=== PATIENT | female | born 1980 | race Caucasian/White ===

== ENCOUNTER 2016-05-31 09:27 | Emergency (ER) | payer OTHER ==
[~2016-05-31 09:27] MED LIST: ALBUTEROL17 GM INH; AURALGAN EAR DR14 ML OT; BACTRIM DS TABL1 TA1 PO; BENZONATATE PO; CIPRO PO; CIPRODEX OTIC7.5 ML OT; CLEOCIN PO; ERY-TAB500 MG PO; FLAGYL PO; FLOXIN20 EA OP; IBUPROFEN800 MG PO; LORTAB 7.5-5001 TAB; LORTAB 7.5-5001 TAB PO; MOTRIN600 MG PO; NO MEDICATIONS; PERCOCET5/325 PO; PHENERGAN PO; PHENERGAN VC W120 M1 PO; PHENERGAN25 MG PO; TYLENOL325 M1; TYLOX 5/500 CAP1 CAP PO; ULTRAM PO; VICODIN 5/1 TAB 5/50 PO; VICODIN 5/500 T1 TAB PO; VICODIN PO; ZITHROMAX PO
== END 2016-05-31 09:52 | disposition home or self-care (01) ==
LOC: CED 09:27
DX: J03.90 Acute tonsillitis, unspecified (principal); F17.210 Nicotine dependence, cigarettes, uncomplicated; Z88.0 Allergy status to penicillin; Z88.1 Allergy status to other antibiotic agents; Z91.040 Latex allergy status; Z91.038 Other insect allergy status; Z88.8 Allergy status to other drugs, medicaments and biological substances
CPT/HCPCS: 96374; 99284; J2930

== ENCOUNTER 2016-06-08 09:36 | Emergency (ER) | payer OTHER ==
--- NOTE | ~2016-06-08 | CR63 ---
[facility] A Service of [facility] RADIOLOGY TEXT RESULTS PATIENT: CLAUDETTE DUMONT LOCATION: [facility] : 76 UNIT #: [id number] AGE: [address]: Maribel Sinclair SEX: F ORDER DR: [id number] [facility] [place], [place] [address] [id number] E MR#: [id number] Acc #: [id number] NAME: CLAUDETTE DUMONT. : 1980 SEX: F STUDY DATE/TIME: 06/08/2016 UNIT: [facility] ROOM: STUDY DESCRIPTION: CR Chest 2 View Attending Physician: Maribel Sinclair P.A.-C. Ordering Physician: Maribel Sinclair P.A.-C. Primary Care Physician: No Primary Care Physician MEDICAL IMAGING REPORT This report is preliminary unless electronic signature is present EXAM Chest, 2 views, 06/08/2016, 0934 hours. HISTORY 35-year-old woman complaining of 3-4 day history of cough, congestion, shortness of air, and chest pain. COMPARISON STUDIES 05/09/2016 FINDINGS Upright PA and lateral views of the chest demonstrate low lung volumes. Stable cardiac, mediastinal, and hilar contours. Stable underlying calcified granulomatous change. IMPRESSION Low lung volumes relative to 06/06/2016. Stable calcified granulomatous change. No acute cardiopulmonary findings. Dictated by... Charleen Flood M.D. THIS IS AN ELECTRONICALLY VERIFIED REPORT Charleen Flood M.D. at 06/08/2016 2:27 PM PEDRO/bobby TD: 06/08/2016 13:50 JOB #: [id number] MEDICAL IMAGING REPORT [facility] A Service [facility] RADIOLOGY TEXT RESULTS PATIENT: CLAUDETTE DUMONT LOCATION: [facility] : 76 UNIT #: [id number] AGE: [address]: Maribel Sinclair SEX: F ORDER DR: COPY
[2016-06-08 10:17] LABS: INFLUENZA A NEG (NEG); INFLUENZA B POS (NEG)
== END 2016-06-08 10:25 | disposition home or self-care (01) ==
LOC: CFTX 09:36
PROVIDERS: Physician Assistant
DX: J10.1 Influenza due to other identified influenza virus with other respiratory manifestations (principal); J45.909 Unspecified asthma, uncomplicated; F17.210 Nicotine dependence, cigarettes, uncomplicated; Z90.49 Acquired absence of other specified parts of digestive tract; Z88.0 Allergy status to penicillin; Z91.040 Latex allergy status; Z88.8 Allergy status to other drugs, medicaments and biological substances
CPT/HCPCS: 71020; 87804; 99284